=== PATIENT | female | born 2000 | race Two or more races ===

== ENCOUNTER 2024-02-01 11:54 | Emergency (ER) | payer OTHER ==
[~2024-02-01] VITALS: Ht 170.2 cm; Wt 70.8 kg
[2024-02-01 16:15] LABS: HEMATOCRIT 35.5 % (36.0-45.00); MEAN CELL VOLUME 84.7 fL (80.00-100.00); MEAN CORPUSCULAR HEMOGLOBIN 28.6 pg (27.00-32.0); MEAN CORPUSCULAR HGB CONC 33.8 g/dl (32.0-36.0); PLATELET COUNT 329 K/uL (150-450); RED BLOOD COUNT 4.18 M/uL (4.00-6.00); RED CELL DISTRIBUTION WIDTH 13.6 % (11.5-14.5)
[2024-02-01 16:24] LABS: PH,URINE 5.5 (5.0-8.0); URINE APPEARANCE Cloudy; URINE BILIRRUBIN Negative (NEGATIVE); URINE BLOOD Negative; URINE COLOR Yellow; URINE GLUCOSE Negative (NEGATIVE); URINE KETONE Negative (NEGATIVE); URINE LEUKOCYTE Moderate; URINE NITRATE Negative; URINE PROTEIN Negative (NEGATIVE); URINE UROBILINOGEN 0.2 E.U./dl
[2024-02-01 16:26] LABS: URINE BACTERIA 2435.4 uL (0.0-1933); URINE CAST 2.74 uL (0.0-1.40); URINE EPITHELIAL CELLS 116.8 uL (0.0-38.8); URINE RBC 3.5 uL (0.0-20.8); URINE WBC 234.2 uL (0.0-23.2)
[2024-02-01] MEDS ORDERED: GENTAMICIN SULFA5 ML OP (17:15)
[2024-02-01] MEDS ORDERED: MACRODANTIN100 M1 PO (17:17)
[2024-02-01] MEDS ORDERED: MACROBID 100 M100 MG PO (17:21)
[2024-02-01] MEDS ORDERED: CEFTRIAXONE SODIUM 1,000 MG VIAL IM STA ×2 (17:28)
[2024-02-01] MEDS ORDERED: CEFTRIAXONE SODIUM 1,000 MG VIAL ONE (17:54)
== END 2024-02-01 17:59 | disposition home or self-care (01) ==
LOC: ER 11:56
DX: H00.16 Chalazion left eye, unspecified eyelid (principal); N39.0 Urinary tract infection, site not specified